=== PATIENT | female | born 1990 | race Caucasian/White ===

== ENCOUNTER 2016-07-15 09:36 | Emergency (ER) | payer OTHER ==
[2016-07-15] MEDS ORDERED: methylPREDNISolone NA SUCC 125 MG/2 ML VIAL IVPB ONE (10:17)
[2016-07-15] MEDS ORDERED: FAMOTIDINE 20 MG/50 ML IVPB 50 ML IVPB ONE ×2 (10:17→10:48)
[2016-07-15] MEDS ORDERED: ACETAMINOPHEN 1000 MG/100 ML VIAL (NON FORMULARY) IVPB ONE (10:24)
--- NOTE | 2016-07-15 10:24 | PDOC ---
History of Present Illness - General Chief Complaint: Respiratory Stated Complaint: FEVER AND RASH Time Seen by Provider: 07/15/16 09:50 - History of Present Illness Initial Comments: 07/15/16 10:19 25-year-old female with a past medical history of mild cardiomyopathy and a 50% ejection fraction, which presented in 2007, possibly thought to be from [facility] , she did see a high school chemistry teacher and have an echo, and has no valvular heart disease Her only medication at this time his Xanax when necessary Patient started Bactrim DS, one pill twice a day, a week ago, for acne and skin issues She was also put on topical sulfur-based medication for her acne and skin issues Patient states that on Wednesday she developed a temperature of 104, with chills, and a sore throat She denies any earache, cough, abdominal pain, vomiting, or diarrhea The fever has continued all week She states that yesterday she developed a diffuse rash, which started as maculopapular, and sweats, and redness around her neck She stopped the Bactrim DS at this time, and took Benadryl, which did not help the rash She states today, her fever continues, and the rash has gotten worse, and become almost confluent in places She denies any conjunctival erythema, she denies any peeling or desquamation in her mouth or mucous membranes, she denies any rash on her palms or soles She states the rash is a bit itchy She denies any dysuria urgency or frequency She denies any other complaints at this time, and the remainder of the review of systems is negative She does have a history of a doxycycline ALLERGY, which causes rash Past History - Past Medical History Allergies/Adverse Reactions: Allergies Allergy/AdvReac Type Severity Reaction Status Date / Time No Known Allergies Allergy Verified 07/15/16 09:40 Home Medications: Ambulatory Orders Amoxicillin - [Amoxicillin 500mg Capsule -] 500 mg PO TID #21 capsule 07/15/16 Diphenhydramine HCl [Benadryl -] 25 mg PO Q8H #21 capsule 07/15/16 Famotidine [Pepcid -] 20 mg PO BID #14 tablet 07/15/16 Prednisone [Deltasone -] 20 mg PO DAILY #15 tablet 07/15/16 Cardiac Disorders: Yes (EF OF 50% THICK LEFT VENTRACILE) - Psycho/Social/Smoking Cessation Hx Anxiety: No Suicidal Ideation: No Smoking History: Never smoked Have you smoked in the past 12 months: No Information on smoking cessation initiated: No Hx Alcohol Use: No Drug/Substance Use Hx: No Substance Use Type: None Review of Systems - Review of Systems Able to Perform ROS?: Yes Comments:: 07/15/16 10:24 12 point review of systems is as per history of present illness and otherwise negative *Physical Exam - Vital Signs Last Vital Signs Temp Pulse Resp BP Pulse Ox 103.1 F H 142 H 18 116/76 100 07/15/16 09:53 07/15/16 09:53 07/15/16 09:53 07/15/16 09:53 07/15/16 09:53 - Physical Exam Comments: 07/15/16 10:24 Physical exam Last Vital Signs Temp Pulse Resp BP Pulse Ox 103.1 F H 142 H 18 116/76 100 07/15/16 09:53 07/15/16 09:53 07/15/16 09:53 07/15/16 09:53 07/15/16 09:53 GENERAL: The patient is awake, alert, and fully oriented, and in no apparent distress. HEAD: Normal with no signs of trauma. EYES: The sclera are anicteric and the conjunctiva are normal, without any erythema or conjunctival involvement ENT: The throat is mildly erythematous, without swelling and without exudate There is no evidence of desquamation, or loss of mucous membrane integrity The tongue shows evidence of dehydration, but there is no evidence of a classic strawberry tongue Mucous members are dry NECK: Supple LUNGS: Breath sounds equal, clear to auscultation bilaterally. No wheezes, and no crackles. HEART: Tachycardic Regular rate and rhythm, normal S1 and S2 without murmur, rub or gallop. ABDOMEN: Soft, nontender, normoactive bowel sounds. No guarding, no rebound. No masses appreciated. EXTREMITIES: Normal range of motion, no edema. No clubbing or cyanosis. No cords, erythema, or tenderness. NEUROLOGICAL: Cranial nerves II through XII grossly intact. Normal speech, normal gait. Grossly nonfocal neurologic exam PSYCH: Normal mood, normal affect. SKIN: There is a erythematous maculopapular rash on the legs bilaterally, which looks like a drug eruption However there is a more confluent rash on the arms, chest, facial skin, and back , with some non-confluent areas that also looked maculopapular The rash is not particularly sandpapery, and is not worse in the elbow creases or other skin creases There is no evidence of desquamation There is no rash on the palms or the soles ED Treatment Course - LABORATORY CBC & Chemistry Diagram: 07/15/16 10:25 07/15/16 10:25 Medical Decision Making - Medical Decision Making 07/15/16 10:28 Possibly Bactrim DS rash, with secondary illness, with dehydration, versus less likely strep-related illness Will start with IV fluid as patient is very dehydrated and febrile, control temperature, prednisone, Benadryl, Pepcid, and reevaluate 07/15/16 11:29 EKG Sinus tachycardia 112, normal axis Normal AV and IV conduction time Normal QT interval Otherwise normal EKG 07/15/16 14:37 Laboratory Results - last 24 hr 07/15/16 07/15/16 07/15/16 10:19 10:19 10:25 WBC 3.4 L RBC 4.84 Hgb 13.6 Hct 41.8 MCV 86.3 MCHC 32.7 RDW 12.1 Plt Count 175 MPV 8.6 Sodium Potassium Chloride Carbon Dioxide Anion Gap BUN Creatinine Creat Clearance w eGFR Random Glucose Calcium Magnesium Total Bilirubin AST ALT Alkaline Phosphatase Creatine Kinase Troponin I B-Natriuretic Peptide Total Protein Albumin Urine Color Yellow Urine Appearance Cloudy Urine pH 5.5 Ur Specific [place] 1.025 Urine Protein 1+ H Urine Glucose (UA) Negative Urine Ketones Trace Urine Blood 1+ H Urine Nitrite Negative Urine Bilirubin 1+ H Urine Urobilinogen 0.2 e.u/dl Ur Leukocyte Esterase 1+ H Urine RBC 3-5 Urine WBC 3-5 Ur Epithelial Cells Moderate Amorphous Urates Few Urine Bacteria Moderate Hyaline Casts 3-5 Urine HCG, Qual Negative 07/15/16 07/15/16 07/15/16 10:25 10:25 10:25 WBC RBC Hgb Hct MCV MCHC RDW Plt Count MPV Sodium 135 L Potassium 4.1 Chloride 105 Carbon Dioxide 21 L Anion Gap 9 BUN 11 Creatinine 1.1 Creat Clearance w eGFR > 60 Random Glucose 90 Calcium 8.5 Magnesium 1.5 L Total Bilirubin 0.4 AST 26 ALT 28 Alkaline Phosphatase 77 Creatine Kinase 54 Troponin I < 0.03 L B-Natriuretic Peptide 10.32 Total Protein 7.3 Albumin 4.1 Urine Color Urine Appearance Urine pH Ur Specific [place] Urine Protein Urine Glucose (UA) Urine Ketones Urine Blood Urine Nitrite Urine Bilirubin Urine Urobilinogen Ur Leukocyte Esterase Urine RBC Urine WBC Ur Epithelial Cells Amorphous Urates Urine Bacteria Hyaline Casts Urine HCG, Qual Patient feeling much better after medications and IV fluid Rashes significantly improved and almost completely gone in places Vital signs improved Vital Signs - 24 hr 07/15/16 07/15/16 07/15/16 09:53 10:35 14:28 Temperature 103.1 F H 103.1 F H 99.1 F Pulse Rate 142 H 142 H Pulse Rate [ 90 Apical] Respiratory 18 16 16 Rate Blood Pressure 116/76 116/76 O2 Sat by Pulse 100 99 100 Oximetry (%) Most likely drug eruption, versus scarlet fever, but more likely drug eruption We'll discharge to home on prednisone taper, amoxicillin, Benadryl, and Pepcid *DC/Admit/Observation/Transfer Diagnosis at time of Disposition: Rash and nonspecific skin eruption, Allergic drug rash, Sore throat - Discharge Dispostion Disposition: HOME Condition at time of disposition: Improved - Prescriptions Prescriptions: Amoxicillin - [Amoxicillin 500mg Capsule -] 500 mg PO TID #21 capsule Diphenhydramine HCl [Benadryl -] 25 mg PO Q8H #21 capsule Prednisone [Deltasone -] 20 mg PO DAILY #15 tablet Famotidine [Pepcid -] 20 mg PO BID #14 tablet - Patient Instructions Additional Instructions: Rest and increase fluid intake Tylenol or Motrin for fever Prednisone taper as directed-start tonight Benadryl [id number]-one pill every 6-8 hours Pepcid bpvi-[id number]-one pill twice a day Amoxicillin-one pill 3 times a day Followup with your primary care physician in 24-48 hours Return immediately if you worsen in any way Take your medications as directed Do not take Bactrim DS again, or any other Sulfa-related medications - Post Discharge Activity Work/School Note: Back to Work
[2016-07-15 10:28] LABS: PH,URINE 5.5 (4.5-8); URINE APPEARANCE CLOUDY; URINE BILIRUBIN 1+ (NEGATIVE); URINE BLOOD 1+ (NEGATIVE); URINE COLOR YELLOW; URINE GLUCOSE (UA) Negative (NEGATIVE); URINE KETONE Trace (NEGATIVE); URINE LEUK ESTERASE 1+ (NEGATIVE); URINE NITRITE Negative (NEGATIVE); URINE PROTEIN 1+ (NEGATIVE); URINE UROBILINOGEN 0.2 E.U/dl (0.2-1.0)
[2016-07-15 10:29] VITALS: BP 116/76; BMI 32.0
[2016-07-15 10:30] LABS: URINE BACTERIA MODERATE /hpf (NEGATIVE)
[2016-07-15] MEDS ORDERED: SODIUM CHLORIDE 1,000 ML IV SCH ×2 (10:30→11:30)
[2016-07-15] MEDS ORDERED: methylPREDNISolone NA SUCC 125 MG/2 ML VIAL ONE (10:47)
[2016-07-15 11:03] LABS: MCH 28.2 pg (25.7-33.7); MCHC 32.7 g/dl (32.0-36.0); MEAN CELL VOLUME 86.3 fl (80-96); MEAN PLT VOLUME 8.6 fl (7.5-11.1); PLATELET COUNT 175 K/MM3 (134-434); RDW 12.1 % (11.6-15.6); WHITE BLOOD COUNT 3.4 K/mm3 (4.0-10.0)
[2016-07-15 11:17] LABS: CPK(DFH) 54 IU/L (26-140)
[2016-07-15 11:18] LABS: ALBUMIN 4.1 g/dl (3.5-5.0); ALK PHOS 77 U/L (32-92); ANION GAP 9 (8-16); BILIRUBIN,TOTAL 0.4 mg/dl (0.2-1.0); CALCIUM 8.5 mg/dl (8.4-10.2); CO2 21 mmol/L (22-28); CREATININE 1.1 mg/dl (0.6-1.3); GLUCOSE,RANDOM 90 mg/dl (74-106); MAGNESIUM 1.5 mg/dL (1.8-2.4); SGOT/AST 26 U/L (10-42); SGPT/ALT 28 U/L (10-40); TOT PROT 7.3 g/dl (6.4-8.3)
[2016-07-15 11:43] LABS: TROPONIN I (DFP) < 0.03 ng/ml (0.03-0.50)
[2016-07-15] MEDS ORDERED: CEFTRIAXONE 1 GM in DEXTROSE 5%-WATER - 50 ML IVPB ONE (12:24)
[2016-07-15] MEDS ORDERED: cefTRIAXone SODIUM 1 GM VIAL ONE (12:30)
[2016-07-15] MEDS ORDERED: ACETAMINOPHEN INJECTION 100 ML IVPB ONE (12:41)
[2016-07-15] MEDS ORDERED: hydrOXYzine HCL 25 MG TABLET (FP) PO ONE ×2 (13:05→13:15)
[2016-07-15 14:29] VITALS: PULSE 90; TEMP 99.1
--- NOTE | 2016-07-16 13:48 | EKG ---
Test Reason : Blood Pressure : / mmHG Vent. Rate : 112 BPM Atrial Rate : 112 BPM P-R Int : 154 ms QRS Dur : 092 ms QT Int : 316 ms P-R-T Axes : 051 088 033 degrees QTc Int : 431 ms SINUS TACHYCARDIA POSSIBLE LEFT ATRIAL ENLARGEMENT NO PREVIOUS ECGS AVAILABLE Confirmed by DENA RODRIGUEZ MD ([id number] on 07/16/2016 1:48:16 PM Referred By: EDEL RHODES Confirmed By:DENA RODRIGUEZ MD
== END 2016-07-15 16:13 | disposition home or self-care (01) ==
LOC: FER 09:36
PROC: 3E033NZ Introduction of Analgesics, Hypnotics, Sedatives into Peripheral Vein, Percutaneous Approach (ICD-10-PCS; principal; 2016-07-15)
PROC: 3E03329 Introduction of Other Anti-infective into Peripheral Vein, Percutaneous Approach (ICD-10-PCS; 2016-07-15)
PROC: 3E033GC Introduction of Other Therapeutic Substance into Peripheral Vein, Percutaneous Approach (ICD-10-PCS; 2016-07-15)
DX: R21 Rash and other nonspecific skin eruption (principal); I42.9 Cardiomyopathy, unspecified
CPT/HCPCS: 36415; 80053; 81003; 81015; 82550; 83735; 83880; 84484; 84703; 85027; 87040; 87070; 87086; 87430; 93005; 96365; 96366; 96367; 96375; 99284-25